=== PATIENT | female | born 1945 | race Caucasian/White ===

== ENCOUNTER 2022-10-10 18:16 | Inpatient (IN) | payer OTHER ==
[~2022-10-10] VITALS: Ht 177.8 cm; Wt 90.0 kg
[2022-10-10] MEDS ORDERED: SODIUM CHLORIDE 0.9% 1,000 ML IV ONE ×3 (19:00→20:45)
[2022-10-10 19:17] LABS: BASOPHILS % (AUTO) 0.3 % (0.0-2.0); EOSINOPHILS % (AUTO) 0.2 % (1.0-6.0); HEMATOCRIT 46.6 % (36-46); HEMOGLOBIN 15.9 g/dL (12.0-16.0); LYMPHOCYTES # (AUTO) 0.7 K/uL (1.0-4.8); LYMPHOCYTES % (AUTO) 11.8 % (22.0-44.0); MEAN CORPUSCULAR HEMOGLOBIN 32.9 pg (26.0-34.0); MEAN CORPUSCULAR HGB CONC 34.1 G/dL (31.0-37.0); MEAN CORPUSCULAR VOLUME 96 fL (80-100); MONOCYTES # (AUTO) 0.1 K/uL (0.1-1.0); MONOCYTES % (AUTO) 1.3 % (2.0-9.0); NEUTROPHILS # (AUTO) 4.9 K/uL (1.8-7.7); PLATELET COUNT (AUTO) 523 K/uL (150-450); RED BLOOD CELL COUNT(AUTO) 4.84 MIL/uL (4.00-5.20); RED CELL DISTRIBUTION WIDTH 13.1 % (11.5-14.5)
[2022-10-10 19:18] LABS: NEUTROPHILS % (AUTO) 86.4 % (40.0-70.0)
[2022-10-10 19:34] LABS: ALBUMIN 3.2 g/dL (3.4-5.0); BILIRUBIN,TOTAL 1.5 mg/dL (0.1-1.0); CALCIUM, TOTAL 10.8 mg/dL (8.8-10.5); CREATININE 1.32 mg/dL (0.60-1.30); TOTAL PROTEIN, SERUM 7.5 g/dL (6.4-8.2)
[2022-10-10 19:35] LABS: POTASSIUM 3.4 mmol/L (3.5-5.1)
[2022-10-10] MEDS ORDERED: MORPHINE SULFATE 4 MG/ML SYRINGE IVP ONE (20:00)
[2022-10-10] MEDS ORDERED: PIPERACILLIN/TAZO 3.375 GM/D5W 50 ML IV ONE (20:00)
[2022-10-10] MEDS ORDERED: MIDAZOLAM HCL 2 MG/2 ML VIAL IVP ONE (20:00)
[2022-10-10] MEDS ORDERED: ONDANSETRON HCL 4 MG/2 ML VIAL IVP ONE (20:00)
[2022-10-10] MEDS ORDERED: MetroNIDAZOLE 750 MG/NACL 150 ML IV ONE (20:15)
[2022-10-10] MEDS ORDERED: MORPHINE SULFATE 2 MG/ML SYRINGE IVP PRN ×2 (20:45→23:45)
[2022-10-10] MEDS ORDERED: ONDANSETRON HCL 4 MG/2 ML VIAL IVP PRN ×2 (20:45→23:45)
[2022-10-10 21:11] LABS: COVID AG,FIA SOURCE NASOPHARYNGEAL
[2022-10-10 21:13] LABS: APPEARANCE,URINE HAZY (CLEAR); BILIRUBIN,URINE NEGATIVE (NEGATIVE); GLUCOSE, URINE (UA) NEGATIVE (NEGATIVE); KETONES,URINE 80-100 mg/dL (NEGATIVE); LEUKOCYTE ESTERASE ,URINE MODERATE (NEGATIVE); NITRATE,URINE POSITIVE (NEGATIVE); OCCULT BLOOD,URINE TRACE (NEGATIVE); PROTEIN,URINE 30-70 mg/dL (NEGATIVE); SPECIFIC GRAVITIY, URINE 1.021 (1.003-1.030)
[2022-10-10 21:18] LABS: BACTERIA,URINE Many /HPF (None Seen); RBC,URINE 0-2 /HPF (0-2); SQUAMOUS EPITHELIAL CELL,UR Few /LPF (None Seen)
[2022-10-10] MEDS ORDERED: GLIP5TAB12 PO (21:21)
[2022-10-10] MEDS ORDERED: LEVO150 PO (21:21)
[2022-10-10] MEDS ORDERED: ATEN-73 PO (21:21)
[2022-10-10] MEDS ORDERED: HYDR-4870 PO (21:21)
[2022-10-10 21:24] LABS: B-TYPE NATRIURETIC PEPTIDE 97 pg/mL (0-100)
[2022-10-10] MEDS ORDERED: MICROFIBRILLAR COLLAGEN 1 GM PACKAGE TP ONE (22:10)
[2022-10-10] MEDS ORDERED: THROMBIN, BOVINE 20000 UNITS/VIAL POWDER TP ONE (22:10)
[2022-10-10] MEDS ORDERED: GELATIN SPONGE,ABSORBABLE 100 MM TP ONE (22:10)
[2022-10-10] MEDS ORDERED: PHENYLEPHRINE 200 MG/D5%-WATER 250 ML IV PRN (23:00)
[2022-10-10 23:05] LABS: ABG BASE EXCESS -8.9 mmol/L (-2.0-3.0); ABG CARBOXYHEMOGLOBIN 1.2 % (0.0-1.5); ABG HCO3 17.9 mmol/L (22.0-26.0); ABG METHEMOGLOBIN 0.3 % (0.0-1.5); ABG OXYGEN CONTENT 18.5 mL/dL (15.0-23.0); ABG OXYGEN SATURATION 96.8 % (95.0-98.0); ABG OXYHEMOGLOBIN 95.3 % (94.0-100.0); ABG PCO2 37 mmHg (35-45); ABG PH 7.296 (7.35-7.450); ABG TOTAL HEMOGLOBIN 13.7 G/dL (12.0-18.0); PO2, ARTERIAL BG 98.6 mmHg (75.0-83.0); SOURCE, BLOOD GAS ARTERIAL
[2022-10-10 23:06] LABS: O2 DEVICE,BLOOD GAS VENTILATOR (ROOM AIR); PEEP,BG 5 cm H2O; SITE, BLOOD GAS ARTERIAL LINE; VT, ABG 450 ml
[2022-10-10] MEDS ORDERED: IPRATROPIUM BROMIDE 0.5 MG/2.5 ML NEB SOLUTION NEB PRN (23:45)
[2022-10-10] MEDS ORDERED: ALBUTEROL SULFATE 2.5 MG/0.5 ML NEB SOLUTION NEB PRN (23:45)
[2022-10-10] MEDS ORDERED: FentaNYL CITRATE PF 100 MCG/2 ML VIAL IVP PRN (23:45)
[2022-10-10] MEDS ORDERED: MEPERIDINE-PF 25 MG/ML VIAL IVP PRN (23:45)
[2022-10-10] MEDS ORDERED: HYDROmorphone HCL 2 MG/ML SYRINGE IVP PRN (23:45)
[2022-10-11] MEDS ORDERED: MetroNIDAZOLE 500 MG/NACL 100 ML IV ONE (01:18)
[2022-10-11 02:00] VITALS: BP 113/37
[2022-10-11] MEDS ORDERED: HYDROmorphone HCL 2 MG/ML SYRINGE IVP PRN (02:00)
[2022-10-11] MEDS ORDERED: DEXMEDETOMIDINE HCL 400 MCG in SODIUM CHLORIDE 0.9% 96 ML IV PRN (02:00)
[2022-10-11] MEDS: MetroNIDAZOLE 500 MG/NACL 100 ML IV SCH ×4 (02:35→23:36)
[2022-10-11] MEDS: RINGERS SOLUTION,LACTATED 1,000 ML IV SCH ×4 (02:35→20:25)
[2022-10-11] MEDS: PIPERACILLIN/TAZO 3.375 GM/D5W 50 ML IV SCH ×4 (02:35→20:26)
[2022-10-11 02:41] LABS: GLUCOSE,POINT OF CARE 142 MG/DL (70-110)
[2022-10-11 04:00] VITALS: BP 139/49
[2022-10-11] MEDS: ACETAMINOPHEN 1000 MG/ISO-OSM 100 ML IV SCH ×2 (04:21→09:57)
[2022-10-11 04:54] LABS: ABG BASE EXCESS -13.7 mmol/L (-2.0-3.0); ABG CARBOXYHEMOGLOBIN 1.6 % (0.0-1.5); ABG METHEMOGLOBIN 0.3 % (0.0-1.5); ABG OXYGEN CONTENT 18.9 mL/dL (15.0-23.0); ABG OXYGEN SATURATION 96.1 % (95.0-98.0); ABG OXYHEMOGLOBIN 94.3 % (94.0-100.0); ABG PCO2 53 mmHg (35-45); ABG TOTAL HEMOGLOBIN 14.2 G/dL (12.0-18.0); PO2, ARTERIAL BG 103.8 mmHg (75.0-83.0); SOURCE, BLOOD GAS ARTERIAL; TEMPERATURE, FAHRENHEIT, BG 98.4 FAHREN (96.0-98.6)
[2022-10-11 05:38] LABS: HEMATOCRIT 40.8 % (36-46); HEMOGLOBIN 13.6 g/dL (12.0-16.0); MEAN CORPUSCULAR HEMOGLOBIN 32.3 pg (26.0-34.0); MEAN CORPUSCULAR HGB CONC 33.2 G/dL (31.0-37.0); MEAN CORPUSCULAR VOLUME 97 fL (80-100); PLATELET COUNT (AUTO) 379 K/uL (150-450)
[2022-10-11 05:57] LABS: INR 1.2 (0.9-1.1); PROTHROMBIN TIME 13.1 SEC (9.4-11.6)
[2022-10-11 06:08] LABS: CREATININE 1.14 mg/dL (0.60-1.30)
[2022-10-11 06:09] LABS: ALBUMIN 2.1 g/dL (3.4-5.0); BILIRUBIN,TOTAL 1.4 mg/dL (0.1-1.0); CALCIUM, TOTAL 7.5 mg/dL (8.8-10.5); TOTAL PROTEIN, SERUM 4.8 g/dL (6.4-8.2)
[2022-10-11 06:11] LABS: POTASSIUM 2.7 mmol/L (3.5-5.1)
[2022-10-11] MEDS: POTASSIUM CHL 10 MEQ/WATER 50 ML IV SCH ×6 (06:35→10:05)
[2022-10-11] MEDS ORDERED: SODIUM CHLORIDE 0.9% 250 ML IV ONE ×2 (07:32→07:58)
[2022-10-11] MEDS: NOREPINEPHRINE 8 MG/D5%-WATER 250 ML IV PRN (07:38)
[2022-10-11 08:00] VITALS: BP 122/55
[2022-10-11] MEDS: OXYGEN THERAPY IH SCH ×2 (08:01→20:23)
[2022-10-11] MEDS: PANTOPRAZOLE SODIUM 40 MG/VIAL IVP SCH (08:01)
[2022-10-11] MEDS: ENOXAPARIN SODIUM 40 MG/0.4 ML PF SYRINGE SQ SCH (08:01)
[2022-10-11 08:30] LABS: BAND NEUTROPHILS % (MANUAL) 39 % (0-5); LYMPHOCYTES % (MANUAL) 8 % (22-44); MONOCYTES % (MANUAL) 6 % (2-9); SEGMENTED NEUTROPHILS % 47 % (40-70)
[2022-10-11 08:51] LABS: GLUCOSE,POINT OF CARE 231 MG/DL (70-110)
[2022-10-11 09:20] LABS: ABG A-A DIFF O2 166.4 mmHg (10-20.0); ABG BASE EXCESS -11.5 mmol/L (-2.0-3.0); ABG CARBOXYHEMOGLOBIN 1.1 % (0.0-1.5); ABG HCO3 16.8 mmol/L (22.0-26.0); ABG METHEMOGLOBIN 0.3 % (0.0-1.5); ABG OXYGEN CONTENT 19.5 mL/dL (15.0-23.0); ABG OXYHEMOGLOBIN 97.6 % (94.0-100.0); ABG PCO2 27 mmHg (35-45); ABG PH 7.348 (7.35-7.450); O2 DEVICE,BLOOD GAS VENTILATOR (ROOM AIR); PO2, ARTERIAL BG 161.1 mmHg (75.0-83.0); SITE, BLOOD GAS ARTERIAL LINE; SOURCE, BLOOD GAS ARTERIAL; TEMPERATURE, FAHRENHEIT, BG 97.6 FAHREN (96.0-98.6)
[2022-10-11 09:21] LABS: PEEP,BG 5 cm H2O; VT, ABG 450 ml
[2022-10-11 09:23] LABS: ABG A-A DIFF O2 192.8 mmHg (10-20.0); ABG PH 7.096 (7.35-7.450); O2 DEVICE,BLOOD GAS VENTILATOR (ROOM AIR); SITE, BLOOD GAS ARTERIAL LINE
[2022-10-11 09:24] LABS: PEEP,BG 5 cm H2O; VT, ABG 450 ml
[2022-10-11] MEDS: INSULIN LISPRO 100 UNITS/ML SQ PRN ×3 (11:55→20:32)
[2022-10-11 12:00] VITALS: BP 133/51
[2022-10-11] MEDS ORDERED: MAGNESIUM OXIDE 400 MG TABLET PO PRN (12:00)
[2022-10-11] MEDS ORDERED: MAGNESIUM SULFATE 2 GM/WATER 50 ML IV PRN (12:00)
[2022-10-11] MEDS ORDERED: POTASSIUM CHLORIDE 20 MEQ ER TABLET PO PRN (12:00)
[2022-10-11] MEDS ORDERED: MAGNESIUM SULFATE 4 GM/WATER 100 ML IV PRN (12:00)
[2022-10-11] MEDS ORDERED: DEXTROSE 50%-WATER 25 GM/50 ML SYRINGE IVP PRN (12:00)
[2022-10-11 12:26] LABS: CALCIUM, TOTAL 7.5 mg/dL (8.8-10.5); CREATININE 1.39 mg/dL (0.60-1.30); MAGNESIUM 1.3 mg/dL (1.80-2.40); PHOSPHORUS 3.1 mg/dL (2.5-4.9); POTASSIUM 4.3 mmol/L (3.5-5.1)
[2022-10-11] MEDS ORDERED: SODIUM CHLORIDE 0.9% 500 ML IV ONE (12:56)
[2022-10-11] MEDS: ALBUMIN HUMAN 25%-12.5GM/50ML 50 ML IV SCH ×2 (13:19→19:13)
[2022-10-11] MEDS: FentaNYL CIT 1000MCG/0.9% NACL 100 ML IV PRN ×2 (13:21→23:36)
[2022-10-11 13:46] LABS: GLUCOSE,POINT OF CARE 227 MG/DL (70-110)
[2022-10-11] MEDS ORDERED: SODIUM BICARBONATE [ADULT] 8.4% 50 MEQ/50 ML SYRINGE IVP ONE (14:45)
[2022-10-11 16:00] VITALS: BP 130/42
[2022-10-11] MEDS: PROPOFOL 1000 MG/ISO-OSM 100 ML IV PRN ×2 (16:22→23:35)
[2022-10-11 18:19] LABS: CALCIUM, TOTAL 7.4 mg/dL (8.8-10.5); CREATININE 1.63 mg/dL (0.60-1.30); MAGNESIUM 1.8 mg/dL (1.80-2.40); PHOSPHORUS 2.2 mg/dL (2.5-4.9); POTASSIUM 3.4 mmol/L (3.5-5.1)
[2022-10-11] MEDS: POTASSIUM CHL 10 MEQ/WATER 50 ML IV PRN ×3 (18:39→20:24)
[2022-10-11 19:00] LABS: C.DIFF GDH ANTIGEN, Stool Negative (Negative); C.DIFF TOXINS A&B, Stool Negative (Negative)
[2022-10-11 20:00] VITALS: BP 130/46
[2022-10-11 20:01] LABS: GLUCOSE,POINT OF CARE 252 MG/DL (70-110)
[2022-10-12] VITALS: BP 141/44
[2022-10-12 00:22] LABS: GLUCOSE,POINT OF CARE 211 MG/DL (70-110)
[2022-10-12] MEDS: ALBUMIN HUMAN 25%-12.5GM/50ML 50 ML IV SCH ×4 (01:36→20:00)
[2022-10-12] MEDS: RINGERS SOLUTION,LACTATED 1,000 ML IV SCH ×4 (01:36→19:59)
[2022-10-12] MEDS: NOREPINEPHRINE 8 MG/D5%-WATER 250 ML IV PRN ×2 (01:37→18:29)
[2022-10-12] MEDS ORDERED: SODIUM CHLORIDE 0.9% 500 ML IV ONE ×2 (03:01)
[2022-10-12] MEDS: PIPERACILLIN/TAZO 3.375 GM/D5W 50 ML IV SCH ×3 (03:35→16:00)
[2022-10-12 04:00] VITALS: BP 125/71
[2022-10-12] MEDS ORDERED: HYDROmorphone HCL 2 MG/ML SYRINGE IVP ONE (05:13)
[2022-10-12] MEDS ORDERED: MIDAZOLAM HCL 2 MG/2 ML VIAL IVP ONE (05:13)
[2022-10-12] MEDS ORDERED: ROCURONIUM BROMIDE 10 MG/ML 5 ML VIAL IVP ONE (05:13)
[2022-10-12] MEDS ORDERED: KETOROLAC TROMETHAMINE 60 MG/2 ML VIAL IM ONE (05:13)
[2022-10-12] MEDS ORDERED: FentaNYL CITRATE PF 100 MCG/2 ML VIAL IVP ONE (05:13)
[2022-10-12] MEDS ORDERED: LIDOCAINE/PF 2% 5 ML SYRINGE IVP ONE (05:13)
[2022-10-12] MEDS ORDERED: PHENYLEPHRINE HCL 10 MG/ML VIAL IVP ONE (05:13)
[2022-10-12] MEDS ORDERED: 0.9% SODIUM CHLORIDE 10 ML VIAL IVP ONE (05:13)
[2022-10-12] MEDS ORDERED: DEXAMETHASONE SOD PHOS 4 MG/ML VIAL IVP ONE (05:13)
[2022-10-12] MEDS ORDERED: PROPOFOL 1% 20 ML VIAL IVP ONE (05:13)
[2022-10-12] MEDS ORDERED: ONDANSETRON HCL 4 MG/2 ML VIAL IVP ONE (05:13)
[2022-10-12] MEDS ORDERED: EPHEDrine SULFATE 50 MG/ML VIAL IM ONE (05:13)
[2022-10-12 05:28] LABS: EOSINOPHILS % (AUTO) 0 % (1.0-6.0); HEMATOCRIT 30.8 % (36-46); HEMOGLOBIN 10.4 g/dL (12.0-16.0); LYMPHOCYTES # (AUTO) 0.9 K/uL (1.0-4.8); LYMPHOCYTES % (AUTO) 4.7 % (22.0-44.0); MEAN CORPUSCULAR HEMOGLOBIN 32.2 pg (26.0-34.0); MEAN CORPUSCULAR HGB CONC 33.8 G/dL (31.0-37.0); MEAN CORPUSCULAR VOLUME 95 fL (80-100); MONOCYTES % (AUTO) 5.3 % (2.0-9.0); NEUTROPHILS # (AUTO) 17.5 K/uL (1.8-7.7); PLATELET COUNT (AUTO) 245 K/uL (150-450); RED BLOOD CELL COUNT(AUTO) 3.23 MIL/uL (4.00-5.20); RED CELL DISTRIBUTION WIDTH 12.7 % (11.5-14.5)
[2022-10-12 05:38] LABS: ALANINE AMINOTRANSFERASE 30 U/L (12-78); ALBUMIN 2.1 g/dL (3.4-5.0); ALKALINE PHOSPHATASE 30 U/L (46-116); ANION GAP 14 mmol/L (8-16); ASPARTATE AMINOTRANSFERASE 24 U/L (15-37); CALCIUM, TOTAL 7.8 mg/dL (8.8-10.5); CARBON DIOXIDE 20 mmol/L (22-29); CHLORIDE 107 mmol/L (98-107); CREATININE 1.75 mg/dL (0.60-1.30); GLOMERULAR FILTR. RATE CALC 28 mL/min (>60); GLUCOSE,RANDOM 212 mg/dL (70-110); POTASSIUM 3.3 mmol/L (3.5-5.1); SODIUM SERUM 141 mmol/L (136-145); TOTAL PROTEIN, SERUM 4.6 g/dL (6.4-8.2); UREA NITROGEN, BLOOD 26 mg/dL (7-18)
[2022-10-12 06:17] LABS: GLUCOSE,POINT OF CARE 176 MG/DL (70-110)
[2022-10-12] MEDS: INSULIN LISPRO 100 UNITS/ML SQ PRN ×2 (06:20→11:53)
[2022-10-12] MEDS: POTASSIUM CHL 10 MEQ/WATER 50 ML IV PRN ×5 (06:20→18:28)
[2022-10-12] MEDS: PROPOFOL 1000 MG/ISO-OSM 100 ML IV PRN (06:30)
[2022-10-12] MEDS: OXYGEN THERAPY IH SCH ×2 (07:59→20:00)
[2022-10-12 08:00] VITALS: BP 141/46
[2022-10-12] MEDS: PANTOPRAZOLE SODIUM 40 MG/VIAL IVP SCH (09:00)
[2022-10-12] MEDS: ENOXAPARIN SODIUM 40 MG/0.4 ML PF SYRINGE SQ SCH (09:00)
[2022-10-12] MEDS: MetroNIDAZOLE 500 MG/NACL 100 ML IV SCH (09:05)
[2022-10-12 12:00] VITALS: BP 126/39
[2022-10-12 12:06] LABS: GLUCOSE,POINT OF CARE 168 MG/DL (70-110)
[2022-10-12 13:30] LABS: ABG BASE EXCESS -4.7 mmol/L (-2.0-3.0); ABG CARBOXYHEMOGLOBIN 0.5 % (0.0-1.5); ABG HCO3 21.2 mmol/L (22.0-26.0); ABG METHEMOGLOBIN 0.3 % (0.0-1.5); ABG OXYGEN CONTENT 14.7 mL/dL (15.0-23.0); ABG OXYGEN SATURATION 97.4 % (95.0-98.0); ABG OXYHEMOGLOBIN 96.6 % (94.0-100.0); ABG PCO2 32 mmHg (35-45); ABG PH 7.412 (7.35-7.450); ABG TOTAL HEMOGLOBIN 10.7 G/dL (12.0-18.0); PO2, ARTERIAL BG 94.5 mmHg (75.0-83.0); SOURCE, BLOOD GAS ARTERIAL; TEMPERATURE, FAHRENHEIT, BG 97.6 FAHREN (96.0-98.6)
[2022-10-12 13:31] LABS: ABG A-A DIFF O2 82.2 mmHg (10-20.0); O2 DEVICE,BLOOD GAS VENTILATOR (ROOM AIR); PEEP,BG 0 cm H2O; PRESSURE SUPPORT, BG 8 cm H2O; SITE, BLOOD GAS ARTERIAL LINE; VENT MODE, BG Press. Support Vent. (ROOM AIR)
[2022-10-12 13:32] LABS: SPONTANEOUS VT, BG 377 ml
[2022-10-12] MEDS ORDERED: ATEN-72 PO (14:47)
[2022-10-12] MEDS ORDERED: GLIP10TA10 PO (14:48)
[2022-10-12 19:11] LABS: GLUCOSE,POINT OF CARE 129 MG/DL (70-110)
[2022-10-12 20:00] VITALS: BP 113/47
== END 2022-10-12 20:35 | disposition short-term general hospital (02) | DRG 853 ==
LOC: EMS 18:17 → ICU 20:54
PROVIDERS: ADMIT Hospitalist; ATTEND Hospitalist
PROC: 0DTE0ZZ Resection of Large Intestine, Open Approach (ICD-10-PCS; 2022-10-10)
PROC: 0W9G0ZZ Drainage of Peritoneal Cavity, Open Approach (ICD-10-PCS; 2022-10-10)
PROC: 0D1B0Z4 Bypass Ileum to Cutaneous, Open Approach (ICD-10-PCS; principal; 2022-10-10 22:30)
PROC: 5A1945Z Respiratory Ventilation, 24-96 Consecutive Hours (ICD-10-PCS; 2022-10-11)
PROC: 0BH17EZ Insertion of Endotracheal Airway into Trachea, Via Natural or Artificial Opening (ICD-10-PCS; 2022-10-11)
DX: A41.9 Sepsis, unspecified organism (principal); J96.00 Acute respiratory failure, unspecified whether with hypoxia or hypercapnia; K65.1 Peritoneal abscess; K63.1 Perforation of intestine (nontraumatic); K65.0 Generalized (acute) peritonitis; R65.21 Severe sepsis with septic shock; N17.0 Acute kidney failure with tubular necrosis; K59.31 Toxic megacolon; N39.0 Urinary tract infection, site not specified; E87.20 Acidosis, unspecified; Z20.822 Contact with and (suspected) exposure to COVID-19; S62.609A Fracture of unspecified phalanx of unspecified finger, initial encounter for closed fracture; K66.8 Other specified disorders of peritoneum; E11.65 Type 2 diabetes mellitus with hyperglycemia; E83.42 Hypomagnesemia; E03.9 Hypothyroidism, unspecified; E87.6 Hypokalemia; I10 Essential (primary) hypertension; G71.00 Muscular dystrophy, unspecified; F32.A Depression, unspecified; E88.09 Other disorders of plasma-protein metabolism, not elsewhere classified; Z90.710 Acquired absence of both cervix and uterus
CPT/HCPCS: 36600; 51701; 51702; 71045; 74176; 80048; 80053; 81001; 82040; 82805; 82962; 83605; 83690; 83735; 83880; 84100; 84132; 84145; 84484; 85025; 85610; 85730; 86753; 87040; 87045; 87070; 87081; 87086; 87177; 87186; 87252; 87324; 87449; 93005; 94002; 94003; 99291; C9113; G0238; G0378; J0131; J1100; J1170; J1650; J1885; J2250; J2270; J2370; J2405; J2543; J2704; J3010; J3475; J3480; J3490; J7030; J7040; J7050; J7120; P9047; Q9967; 36415-L1; 36415-TC; Z7610